=== PATIENT | male | born 1945 | race Caucasian/White ===

== ENCOUNTER 2022-06-20 16:02 | Emergency (ER) | payer OTHER, MEDICAID ==
[~2022-06-20] VITALS: Ht 165.1 cm; Wt 58.0 kg
[~2022-06-20 16:02] MED LIST: AMLO5TAB4 PO; APIX5TAB PO; BICA50TA7 PO; LISI20TA31 PO; NAPR-677 PO
[2022-06-20 16:10] VITALS: BP 124/64
== END 2022-06-20 19:00 | disposition home or self-care (01) ==
LOC: ER 16:02
DX: Z00.00 Encounter for general adult medical examination without abnormal findings (principal); I10 Essential (primary) hypertension; Z93.6 Other artificial openings of urinary tract status
CPT/HCPCS: 99281

== ENCOUNTER 2022-06-23 05:26 | Inpatient (IN) | payer OTHER, MEDICAID ==
[~2022-06-23] VITALS: Ht 165.1 cm; Wt 59.0 kg
[2022-06-23 10:24] LABS: BASOPHILS % 1.5 % (0.0-2.0); EOSINOPHILS % 9.6 % (0.0-5.0); HEMATOCRIT. 32.9 % (42.0-52.0); LYMPHOCYTES % 10.2 % (20.0-50.0); MEAN CORPUSCULAR HEMOGLOBIN 29.5 pg (28.0-32.0); MEAN CORPUSCULAR VOLUME 88.2 fL (80.0-94.0); MEAN PLATELET VOLUME 6.9 fl (7.4-10.4); MONOCYTES % 6.3 % (2.0-8.0); NEUTROPHILS % 72.4 % (40.0-76.0); PLATELET 209 x1000/uL (130-400); RED BLOOD CELL COUNT 3.72 mill/uL (4.7-6.1); RED CELL DISTRIBUTION WIDTH 13.3 % (11.6-14.6)
[2022-06-23 10:30] LABS: CHLORIDE 110 mEq/L (98-107)
[2022-06-23 10:34] LABS: PROTHROMBIN TIME 10.6 sec (9.6-11.0)
[2022-06-23 13:20] LABS: CLARITY URINE CLOUDY (CLEAR); COLOR URINE YELLOW (YELLOW); KETONES URINE NEGATIVE (NEGATIVE); LEUKOCYTE ESTERASE URINE 3+ (NEGATIVE); NITRITE URINE NEGATIVE (NEGATIVE); OCCULT BLOOD URINE 1+ (NEGATIVE); PROTEIN URINE 2+ (NEGATIVE); SPECIFIC GRAVITY URINE 1.011 (1.005-1.030); UROBILINOGEN URINE 0.2 E.U./dL (0.2-1.0)
[2022-06-23] MEDS ORDERED: DIPHENHYDRAMINE 50MG/ML VIAL IV PRN (16:00)
[2022-06-23] MEDS ORDERED: MAGNESIUM/ALUMINUM HYDROXIDE/SIMETHICONE 30ML UDC PO PRN (16:00)
[2022-06-23] MEDS ORDERED: ACETAMINOPHEN 325MG TABLET PO PRN ×2 (16:00)
[2022-06-23] MEDS ORDERED: CLONIDINE 0.1MG TABLET PO PRN (16:00)
[2022-06-23] MEDS ORDERED: ONDANSETRON HCL 4MG/2ML INJ IV PRN (16:00)
[2022-06-23] MEDS: ENOXAPARIN 40MG/0.4ML SYR SUBCUT SCH (16:48)
[2022-06-23] MEDS: DEXT 5%/0.45% NACL 1000ML 1,000 ML IV SCH (16:48)
[2022-06-23 22:00] VITALS: BP 129/70
[2022-06-24] VITALS: BP 127/67
[2022-06-24 08:00] VITALS: BP 133/73
[2022-06-24] MEDS ORDERED: BICALUTAMIDE 50 MG TABLET PO SCH (09:00)
[2022-06-24] MEDS: DEXT 5%/0.45% NACL 1000ML 1,000 ML IV SCH (09:41)
[2022-06-24] MEDS ORDERED: CEFTRIAXONE 1 G PREMIX 50 ML IV SCH (10:00)
[2022-06-24 12:00] VITALS: BP 123/65
[2022-06-24] MEDS: CEFTRIAXONE 1,000 MG in DEXTROSE 5% WATER 50 ML IV SCH (12:41)
[2022-06-24 16:00] VITALS: BP 119/63
[2022-06-24] MEDS: ENOXAPARIN 40MG/0.4ML SYR SUBCUT SCH (17:00)
[2022-06-25] VITALS: BP 136/71
[2022-06-25 08:00] VITALS: BP 128/68
[2022-06-25] MEDS: DEXT 5%/0.45% NACL 1000ML 1,000 ML IV SCH (08:00)
[2022-06-25] MEDS ORDERED: BICALUTAMIDE 50 MG TABLET PO SCH (09:30)
[2022-06-25] MEDS: CEFTRIAXONE 1,000 MG in DEXTROSE 5% WATER 50 ML IV SCH (10:07)
[2022-06-25 12:00] VITALS: BP 116/65
[2022-06-25 14:29] VITALS: BP 116/65
[2022-06-25 16:00] VITALS: BP 126/64
== END 2022-06-25 17:40 | disposition home or self-care (01) | DRG 699 ==
LOC: ER 05:26 → EDBEDREQ 09:28 → EDBEDREQTM 09:28 → EDBEDREQ 12:40 → 6EST 22:35
PROVIDERS: ADMIT Internal Medicine; ATTEND Internal Medicine
DX: T83.012A Breakdown (mechanical) of nephrostomy catheter, initial encounter (principal); N39.0 Urinary tract infection, site not specified; C61 Malignant neoplasm of prostate; N13.9 Obstructive and reflux uropathy, unspecified; I10 Essential (primary) hypertension; Z20.822 Contact with and (suspected) exposure to COVID-19; Z79.899 Other long term (current) drug therapy; Z85.46 Personal history of malignant neoplasm of prostate; Z85.3 Personal history of malignant neoplasm of breast; Y73.2 Prosthetic and other implants, materials and accessory gastroenterology and urology devices associated with adverse incidents; Y92.89 Other specified places as the place of occurrence of the external cause
CPT/HCPCS: 36415; 74176; 80053; 81003; 85025; 87077; 87186; 87426; 93970; 99285; C9803; J0696; J1650; J7060

== ENCOUNTER 2022-07-30 20:25 | Emergency (ER) | payer OTHER, MEDICAID ==
[~2022-07-30] VITALS: Ht 165.1 cm; Wt 60.0 kg
[2022-07-31 04:19] LABS: CLARITY URINE CLOUDY (CLEAR); COLOR URINE YELLOW (YELLOW); KETONES URINE NEGATIVE (NEGATIVE); LEUKOCYTE ESTERASE URINE 3+ (NEGATIVE); NITRITE URINE POSITIVE (NEGATIVE); OCCULT BLOOD URINE 2+ (NEGATIVE); PH URINE 7.5 (4.5-8.0); PROTEIN URINE 1+ (NEGATIVE); SPECIFIC GRAVITY URINE 1.011 (1.005-1.030); UROBILINOGEN URINE 0.2 E.U./dL (0.2-1.0)
[2022-07-31 05:01] VITALS: BP 128/88
[2022-07-31] MEDS ORDERED: CEPH250C2 MT (05:02)
== END 2022-07-31 06:17 | disposition home or self-care (01) ==
LOC: ER 20:25
DX: Z43.6 Encounter for attention to other artificial openings of urinary tract (principal); N39.0 Urinary tract infection, site not specified; I10 Essential (primary) hypertension; N40.0 Benign prostatic hyperplasia without lower urinary tract symptoms; Z85.46 Personal history of malignant neoplasm of prostate
CPT/HCPCS: 81003; 99283

== ENCOUNTER 2022-08-18 07:38 | Inpatient (IN) | payer OTHER, MEDICAID ==
[~2022-08-18] VITALS: Ht 160 cm; Wt 58.1 kg
[~2022-08-18 07:38] MED LIST changes: +CEPH250C2 MT
[2022-08-18 16:47] LABS: HEMATOCRIT. 36.6 % (42.0-52.0); HEMOGLOBIN. 11.9 g/dL (14.0-18.0); MEAN CORPUSCULAR HEMOGLOBIN 28.7 pg (28.0-32.0); MEAN CORPUSCULAR VOLUME 88.1 fL (80.0-94.0); MEAN PLATELET VOLUME 7.8 fl (7.4-10.4); PLATELET 194 x1000/uL (130-400); RED BLOOD CELL COUNT 4.16 mill/uL (4.7-6.1); RED CELL DISTRIBUTION WIDTH 14.1 % (11.6-14.6)
[2022-08-18 16:51] LABS: CHLORIDE 105 mEq/L (98-107)
[2022-08-18] MEDS ORDERED: SODIUM CHLORIDE 0.9% 1,000 ML IV ONE (17:00)
[2022-08-18 17:46] LABS: CLARITY URINE CLOUDY (CLEAR); COLOR URINE YELLOW (YELLOW); KETONES URINE NEGATIVE (NEGATIVE); LEUKOCYTE ESTERASE URINE 3+ (NEGATIVE); NITRITE URINE POSITIVE (NEGATIVE); OCCULT BLOOD URINE 1+ (NEGATIVE); PH URINE 8.5 (4.5-8.0); PROTEIN URINE 2+ (NEGATIVE); SPECIFIC GRAVITY URINE 1.012 (1.005-1.030); UROBILINOGEN URINE 0.2 E.U./dL (0.2-1.0)
[2022-08-18 18:37] LABS: PLATELET ESTIMATE NORMAL
[2022-08-18] MEDS ORDERED: CEFTRIAXONE 1 G PREMIX 50 ML IV ONE (18:45)
[2022-08-19 08:00] VITALS: BP_SYST 121; BP_SYST 136; BP_DIAS 62
[2022-08-19] MEDS: SODIUM CHLORIDE 0.45% 1,000 ML IV SCH (09:15)
[2022-08-19 10:25] VITALS: BP 136/62
[2022-08-19] MEDS ORDERED: ACETAMINOPHEN 325MG TABLET PO PRN (10:30)
[2022-08-19] MEDS ORDERED: DOCUSATE SODIUM 100MG CAPSULE PO PRN (10:30)
[2022-08-19] MEDS ORDERED: IPRATROPIUM/ALBUTEROL 0.5-3(2.5)MG/3ML NEB HHN PRN (10:30)
[2022-08-19] MEDS ORDERED: ONDANSETRON HCL 4MG/2ML INJ IV PRN (10:30)
[2022-08-19] MEDS ORDERED: HYDROCODONE/ACETAMINOPHEN 5/325MG TABLET PO PRN (10:45)
[2022-08-19] MEDS ORDERED: NALOXONE HCL 0.4MG/ML VIAL IV PRN (10:45)
[2022-08-19] MEDS: ENOXAPARIN 40MG/0.4ML SYR SUBCUT SCH (11:00)
[2022-08-19 12:00] VITALS: BP 137/62
[2022-08-19 13:12] LABS: PARTIAL THROMBOPLASTIN TIME 25.4 sec (23.4-31.0); PROTHROMBIN TIME 10.6 sec (9.6-11.0)
[2022-08-19] MEDS ORDERED: LIDOCAINE HCL 1% 10 MG/ML 10ML VIAL ONE (13:16)
[2022-08-19] MEDS ORDERED: IOHEXOL-300 100 ML BOTTLE ONE (13:17)
[2022-08-19] MEDS ORDERED: IOHEXOL-300 50 ML BOTTLE IV ONE (13:18)
[2022-08-19 16:00] VITALS: BP 121/62
[2022-08-19 16:38] LABS: CREATINE KINASE 66 IU/L (39-308); CREATINE KINASE MB FRACTION < 1.0 ng/mL (0.5-3.6)
[2022-08-19 20:00] VITALS: BP 113/59
[2022-08-19] MEDS ORDERED: ALBUTEROL (0.083%) 2.5MG/3ML NEB HHN PRN (20:00)
[2022-08-19] MEDS ORDERED: IPRATROPIUM BROMIDE (0.02%) 0.5MG/2.5ML NEB HHN PRN (20:00)
[2022-08-19] MEDS: CEFTRIAXONE 1,000 MG in DEXTROSE 5% WATER 50 ML IV SCH (20:18)
[2022-08-19 23:16] LABS: CREATINE KINASE 55 IU/L (39-308); CREATINE KINASE MB FRACTION < 1.0 ng/mL (0.5-3.6)
[2022-08-20] VITALS: BP 130/62
[2022-08-20] MEDS: SODIUM CHLORIDE 0.45% 1,000 ML IV SCH ×2 (01:55→18:56)
[2022-08-20 04:00] VITALS: BP 115/63
[2022-08-20 08:00] VITALS: BP 140/63
[2022-08-20] MEDS: ENOXAPARIN 40MG/0.4ML SYR SUBCUT SCH (09:00)
[2022-08-20 12:00] VITALS: BP 157/78
[2022-08-20] MEDS ORDERED: CIPR-263 MT (13:20)
[2022-08-20 16:00] VITALS: BP 125/68
[2022-08-20 20:00] VITALS: BP 123/67
[2022-08-20] MEDS: CEFTRIAXONE 1,000 MG in DEXTROSE 5% WATER 50 ML IV SCH (21:11)
[2022-08-21] VITALS (17 sets, daily range): BP systolic 122–185; BP diastolic 57–93
[2022-08-21 07:21] LABS: BASOPHILS % 2.3 % (0.0-2.0); EOSINOPHILS % 6.3 % (0.0-5.0); HEMATOCRIT. 33.1 % (42.0-52.0); HEMOGLOBIN. 10.9 g/dL (14.0-18.0); LYMPHOCYTES % 17.6 % (20.0-50.0); MEAN CORPUSCULAR VOLUME 87.5 fL (80.0-94.0); MEAN PLATELET VOLUME 7.8 fl (7.4-10.4); MONOCYTES % 6.2 % (2.0-8.0); NEUTROPHILS % 67.6 % (40.0-76.0); PLATELET 148 x1000/uL (130-400); RED BLOOD CELL COUNT 3.78 mill/uL (4.7-6.1); RED CELL DISTRIBUTION WIDTH 13.8 % (11.6-14.6)
[2022-08-21] MEDS ORDERED: LIDOCAINE HCL 1% 10 MG/ML 10ML VIAL ONE (07:22)
[2022-08-21] MEDS ORDERED: FENTANYL CITRATE/PF 50MCG/ML 2ML VIAL IV NR (07:55)
[2022-08-21] MEDS ORDERED: FENTANYL CITRATE/PF 50MCG/ML 2ML VIAL ONE (07:55)
[2022-08-21] MEDS: ENOXAPARIN 40MG/0.4ML SYR SUBCUT SCH (09:36)
[2022-08-21] MEDS: SODIUM CHLORIDE 0.45% 1,000 ML IV SCH (11:55)
[2022-08-21] MEDS ORDERED: AMLO5TAB4 PO (13:25)
== END 2022-08-21 21:36 | disposition home or self-care (01) | DRG 700 ==
LOC: ER 07:38 → 6EST 08-19 00:15 → ER 08-19 06:01
PROVIDERS: ADMIT Internal Medicine; ATTEND Internal Medicine
PROC: 0T25X0Z Change Drainage Device in Kidney, External Approach (ICD-10-PCS; principal; 2022-08-21)
DX: T83.012A Breakdown (mechanical) of nephrostomy catheter, initial encounter (principal); N30.90 Cystitis, unspecified without hematuria; I10 Essential (primary) hypertension; Z20.822 Contact with and (suspected) exposure to COVID-19; Z85.46 Personal history of malignant neoplasm of prostate; Z79.01 Long term (current) use of anticoagulants; Z86.718 Personal history of other venous thrombosis and embolism; Y92.89 Other specified places as the place of occurrence of the external cause
CPT/HCPCS: 36415; 50435; 74176; 80048; 80053; 81003; 82550; 82553; 84484; 85025; 87426; 99152; 99153; 99285; C1760; C1769; C2625; J0696; J1650; J3010; J3490; J7030; J7060; Q9967; G0500

== ENCOUNTER 2023-02-16 14:46 | Inpatient (IN) | payer OTHER, MEDICAID ==
[~2023-02-16] VITALS: Ht 157.5 cm; Wt 59.0 kg
[~2023-02-16 14:46] MED LIST changes: +ACET-2708 MT; -CEPH250C2 MT; +CEPH500C2 MT; +NITR-87 MT; +ONDA4TAB50 MT
[2023-02-16 15:39] VITALS: O2SAT 98
[2023-02-16 22:53] LABS: BASOPHILS % 1.2 % (0.0-2.0); EOSINOPHILS % 3.2 % (0.0-5.0); HEMATOCRIT. 30.3 % (42.0-52.0); HEMOGLOBIN. 9.9 g/dL (14.0-18.0); MEAN CORPUSCULAR HGB CONC 32.6 g/dL (31.0-37.0); MEAN CORPUSCULAR VOLUME 85.9 fL (80.0-94.0); MEAN PLATELET VOLUME 7.2 fl (7.4-10.4); MONOCYTES % 5.4 % (2.0-8.0); NEUTROPHILS % 77.2 % (40.0-76.0); PLATELET 133 x1000/uL (130-400); RED BLOOD CELL COUNT 3.52 mill/uL (4.7-6.1); RED CELL DISTRIBUTION WIDTH 14.2 % (11.6-14.6); WHITE BLOOD COUNT 7.7 x1000/uL (4.5-11.0)
[2023-02-16 23:07] LABS: CHLORIDE 107 mEq/L (98-107); INDEX HEMOLYSI 1 (1-3); INDEX ICTERIC 1 (1-4); INDEX LIPEMIC 1 (1-3); POTASSIUM 4.2 mEq/L (3.5-5.1); SODIUM 137 mEq/L (136-145)
[2023-02-16 23:16] LABS: ALANINE AMINOTRANSFERASE 41 IU/L (13-61); ALBUMIN 3.7 g/dL (3.4-5.0); ASPARTATE AMINOTRANSFERASE 29 IU/L (15-37); BILIRUBIN TOTAL 0.2 mg/dL (0.1-1.0); CALCIUM 8.6 mg/dL (8.5-10.1); CARBON DIOXIDE 22 mEq/L (21-32); CREATININE 1.5 mg/dL (0.6-1.3); GLUCOSE 104 mg/dL (70-105); PROTEIN TOTAL 8.1 g/dL (6.0-8.3); UREA NITROGEN BLOOD 26 mg/dL (7-21)
[2023-02-17 01:10] VITALS: BP 123/66; PULSE 80; RESP 20; TEMP 97.2
[2023-02-17 04:00] VITALS: BP 126/67; PULSE 81; RESP 17; TEMP 98.2
[2023-02-17 08:00] VITALS: BP 129/65; PULSE 71; RESP 18; TEMP 96.7
[2023-02-17] MEDS ORDERED: IPRATROPIUM/ALBUTEROL 0.5-3(2.5)MG/3ML NEB HHN PRN (10:30)
[2023-02-17] MEDS ORDERED: CLONIDINE 0.1MG TABLET PO PRN (10:30)
[2023-02-17] MEDS ORDERED: ACETAMINOPHEN 325MG TABLET PO PRN ×2 (10:30)
[2023-02-17] MEDS: SODIUM CHLORIDE 0.9% 1,000 ML IV SCH (10:30)
[2023-02-17] MEDS ORDERED: ONDANSETRON HCL 4MG/2ML INJ IV PRN (10:30)
[2023-02-17] MEDS ORDERED: DOCUSATE SODIUM 100MG CAPSULE PO PRN (10:30)
[2023-02-17 12:00] VITALS: BP 138/97; PULSE 72; RESP 18; TEMP 96.7
[2023-02-17 16:00] VITALS: BP 109/48; PULSE 78; RESP 17; TEMP 96.1
[2023-02-17 17:16] LABS: BASOPHILS % 1.1 % (0.0-2.0); EOSINOPHILS % 3.1 % (0.0-5.0); HEMATOCRIT. 27.7 % (42.0-52.0); HEMOGLOBIN. 9.2 g/dL (14.0-18.0); LYMPHOCYTES % 11.8 % (20.0-50.0); MEAN CORPUSCULAR HEMOGLOBIN 28.3 pg (28.0-32.0); MEAN CORPUSCULAR HGB CONC 33.1 g/dL (31.0-37.0); MEAN CORPUSCULAR VOLUME 85.4 fL (80.0-94.0); MEAN PLATELET VOLUME 7.8 fl (7.4-10.4); MONOCYTES % 5.9 % (2.0-8.0); NEUTROPHILS % 78.1 % (40.0-76.0); PLATELET 119 x1000/uL (130-400); RED BLOOD CELL COUNT 3.24 mill/uL (4.7-6.1); RED CELL DISTRIBUTION WIDTH 14.2 % (11.6-14.6); WHITE BLOOD COUNT 5.4 x1000/uL (4.5-11.0)
[2023-02-17 17:23] LABS: POTASSIUM 3.6 mEq/L (3.5-5.1)
[2023-02-17 17:27] LABS: CALCIUM 7.7 mg/dL (8.5-10.1); CREATININE 1.5 mg/dL (0.6-1.3)
[2023-02-17 17:56] LABS: FOLIC ACID (FOLATE) SERUM 8.8 ng/mL (>5.38)
[2023-02-17 20:00] VITALS: BP 138/65; PULSE 77; RESP 18; TEMP 96.3
[2023-02-18] VITALS: BP 126/64; PULSE 24; RESP 18; TEMP 97
[2023-02-18 04:00] VITALS: BP 126/64; PULSE 24; RESP 18; TEMP 97
[2023-02-18 08:00] VITALS: BP 133/69; PULSE 78; RESP 18; TEMP 97.6
[2023-02-18 13:22] LABS: PROTHROMBIN TIME 10.9 sec (9.6-11.0)
== END 2023-02-18 17:10 | disposition home or self-care (01) | DRG 699 ==
LOC: ER 14:46 → MICUSO 22:30 → 4WST 02-17 02:02
PROVIDERS: ADMIT Internal Medicine; ATTEND Internal Medicine
DX: T83.012A Breakdown (mechanical) of nephrostomy catheter, initial encounter (principal); N17.9 Acute kidney failure, unspecified; I12.9 Hypertensive chronic kidney disease with stage 1 through stage 4 chronic kidney disease, or unspecified chronic kidney disease; D63.1 Anemia in chronic kidney disease; N18.9 Chronic kidney disease, unspecified; Z85.46 Personal history of malignant neoplasm of prostate; Z79.899 Other long term (current) drug therapy; Y73.2 Prosthetic and other implants, materials and accessory gastroenterology and urology devices associated with adverse incidents; Y92.89 Other specified places as the place of occurrence of the external cause
CPT/HCPCS: 36415; 74176; 80048; 80053; 82607; 82728; 82746; 83540; 83550; 85025; 99285; J7030

== ENCOUNTER 2023-07-05 09:21 | Inpatient (IN) | payer MEDICARE, MEDICAID ==
[~2023-07-05] VITALS: Ht 172.7 cm; Wt 81.7 kg
[~2023-07-05 09:21] MED LIST changes: +ABIR250T2 PO; -ACET-2708 MT; +APIX2.5T PO; -APIX5TAB PO; -BICA50TA7 PO; -CEPH500C2 MT; +DENO120V SUBCUT; +LEUP22.52 IM; +LEVO25TA7 PO; -LISI20TA31 PO; -NAPR-677 PO; -NITR-87 MT; -ONDA4TAB50 MT
[2023-07-05 11:02] LABS: MEAN CORPUSCULAR HEMOGLOBIN 27.4 pg (28.0-32.0); MEAN CORPUSCULAR HGB CONC 31.5 g/dL (31.0-37.0); MEAN CORPUSCULAR VOLUME 86.7 fL (80.0-94.0); MEAN PLATELET VOLUME 6.4 fl (7.4-10.4); PLATELET 150 x1000/uL (130-400); RED BLOOD CELL COUNT 1.69 mill/uL (4.7-6.1); WHITE BLOOD COUNT 8.5 x1000/uL (4.5-11.0)
[2023-07-05 11:03] LABS: DIFFERENTIAL COMMENT 1
[2023-07-05 11:04] LABS: HEMATOCRIT. 14.6 % (42.0-52.0); HEMOGLOBIN. 4.6 g/dL (14.0-18.0)
[2023-07-05 11:22] LABS: ALANINE AMINOTRANSFERASE < 7 IU/L (10-49); ASPARTATE AMINOTRANSFERASE 16 IU/L (<34); BILIRUBIN TOTAL < 0.2 mg/dL (0.1-1.0); CHLORIDE 97 mEq/L (98-107); GLUCOSE 118 mg/dL (70-105); POTASSIUM 5.7 mEq/L (3.5-5.1); PROTEIN TOTAL 7.3 g/dL (6.0-8.3); SODIUM 129 mEq/L (136-145); TROPONIN I HIGH SENSITIVITY 16 ng/L (3.0-53)
[2023-07-05 11:24] LABS: CARBON DIOXIDE < 10 mEq/L (21-32)
[2023-07-05 11:26] LABS: ANISOCYTOSIS 1+; PLATELET ESTIMATE NORMAL
[2023-07-05 11:27] LABS: UREA NITROGEN BLOOD 132 mg/dL (9-23)
[2023-07-05 11:28] LABS: CALCIUM 5.4 mg/dL (8.7-10.4); CREATININE 9.7 mg/dL (0.6-1.3)
[2023-07-05] MEDS ORDERED: ALBUTEROL (0.083%) 2.5MG/3ML NEB HHN ONE (11:30)
[2023-07-05] MEDS ORDERED: CALCIUM CHLORIDE 1GM/10ML SYR IV ONE (11:30)
[2023-07-05] MEDS ORDERED: SODIUM BICARBONATE 8.4% 1 MEQ/ML 50ML SYR IV ONE (11:30)
[2023-07-05 11:33] LABS: INR 1.2; PROTHROMBIN TIME 12.9 sec (9.6-11.0)
[2023-07-05 11:45] VITALS: PULSE 98; RESP 22; O2SAT 3
[2023-07-05] MEDS ORDERED: CEFTRIAXONE 1GM PREMIX 50 ML IV ONE (11:45)
[2023-07-05] MEDS ORDERED: SODIUM BICARBONATE 8.4% 1 MEQ/ML 50ML SYR IV NR (12:15)
[2023-07-06 04:19] LABS: MEAN CORPUSCULAR HEMOGLOBIN 27.9 pg (28.0-32.0); MEAN CORPUSCULAR HGB CONC 32.8 g/dL (31.0-37.0); MEAN PLATELET VOLUME 6.6 fl (7.4-10.4); PLATELET 119 x1000/uL (130-400); RED BLOOD CELL COUNT 2.18 mill/uL (4.7-6.1); RED CELL DISTRIBUTION WIDTH 16.6 % (11.6-14.6); WHITE BLOOD COUNT 9.3 x1000/uL (4.5-11.0)
[2023-07-06 04:32] LABS: ALANINE AMINOTRANSFERASE < 7 IU/L (10-49); ALBUMIN 3.8 g/dL (3.2-4.8); ASPARTATE AMINOTRANSFERASE 13 IU/L (<34); BILIRUBIN TOTAL 0.3 mg/dL (0.1-1.0); CHLORIDE 101 mEq/L (98-107); GLUCOSE 117 mg/dL (70-105); POTASSIUM 5.5 mEq/L (3.5-5.1); PROTEIN TOTAL 6.8 g/dL (6.0-8.3); SODIUM 132 mEq/L (136-145)
[2023-07-06 04:54] LABS: DIFFERENTIAL COMMENT 1
[2023-07-06 05:06] LABS: CALCIUM 5.9 mg/dL (8.7-10.4); CARBON DIOXIDE < 10 mEq/L (21-32); CREATININE 9.7 mg/dL (0.6-1.3); UREA NITROGEN BLOOD 131 mg/dL (9-23)
[2023-07-06 05:07] LABS: HEMATOCRIT. 18.5 % (42.0-52.0); HEMOGLOBIN. 6.1 g/dL (14.0-18.0)
[2023-07-06 07:04] LABS: CLARITY URINE TURBID (CLEAR); COLOR URINE YELLOW (YELLOW); GLUCOSE URINE NEGATIVE (NEGATIVE); KETONES URINE TRACE (NEGATIVE); LEUKOCYTE ESTERASE URINE 3+ (NEGATIVE); NITRITE URINE NEGATIVE (NEGATIVE); OCCULT BLOOD URINE 3+ (NEGATIVE); PROTEIN URINE 3+ (NEGATIVE); SPECIFIC GRAVITY URINE 1.016 (1.005-1.030); UROBILINOGEN URINE 0.2 E.U./dL (0.2-1.0)
[2023-07-06 07:49] LABS: ANISOCYTOSIS 1+; PLATELET ESTIMATE SLIGHTLY DECREASED
[2023-07-06 07:51] LABS: WBC URINE TNTC /hpf (0-2)
[2023-07-06 07:52] LABS: SQUAMOUS EPITHELIAL CELL URINE NONE SEEN /lpf (RARE/1+)
[2023-07-06 07:53] LABS: BACTERIA URINE 4+
[2023-07-06 09:38] LABS: BG BASE EXCESS -15.6 mmol/L (-2.0-2.0); BG CARBOXYHEMOGLOBIN 0.2 % (0.5-1.5); BG DEOXYHEMOGLOBIN 2.3 % (0.0-5.0); BG FRACTION INSPIRED OXYGEN 28; BG HCO3 ACT 9.9 mmol/L (22.0-26.0); BG METHEMOGLOBIN 0.2 % (0.0-1.5); BG OXYGEN SATURATION 97.7 % (92.0-98.5); BG OXYHEMOGLOBIN 97.3 % (94.0-97.0); BG PCO2 22.5 mmHg (35.0-45.0); BG PH 7.261 (7.350-7.450); BG PO2 108.1 mmHg (75.0-100.0); BG SAMPLE SITE RIGHT BRACHIAL; BG TOTAL HEMOGLOBIN 8.6 g/dL (12.0-18.0); BG VENT MODE NASAL CANNULA
[2023-07-06] MEDS ORDERED: DOCUSATE SODIUM 100MG CAPSULE PO PRN (13:45)
[2023-07-06] MEDS ORDERED: ACETAMINOPHEN 325MG TABLET PO PRN (13:45)
[2023-07-06] MEDS ORDERED: CLONIDINE 0.1MG TABLET PO PRN (13:45)
[2023-07-06] MEDS ORDERED: IPRATROPIUM/ALBUTEROL 0.5-3(2.5)MG/3ML NEB HHN PRN (13:45)
[2023-07-06] MEDS ORDERED: PIPERACILLIN/TAZO 3.375G/50ML 50 ML IV NR (14:15)
[2023-07-06] MEDS: SODIUM CHLORIDE 0.9% 1,000 ML IV SCH (14:29)
[2023-07-06 15:03] LABS: HEMATOCRIT. 24.3 % (42.0-52.0); HEMOGLOBIN. 7.7 g/dL (14.0-18.0); MEAN CORPUSCULAR HEMOGLOBIN 28.4 pg (28.0-32.0); MEAN CORPUSCULAR HGB CONC 31.9 g/dL (31.0-37.0); MEAN CORPUSCULAR VOLUME 89.1 fL (80.0-94.0); MEAN PLATELET VOLUME 6.7 fl (7.4-10.4); PLATELET 105 x1000/uL (130-400); RED BLOOD CELL COUNT 2.72 mill/uL (4.7-6.1); RED CELL DISTRIBUTION WIDTH 16.7 % (11.6-14.6); WHITE BLOOD COUNT 7.6 x1000/uL (4.5-11.0)
[2023-07-06 15:05] LABS: AMMONIA < 10 uMol/L (<32)
[2023-07-06 15:06] LABS: ALANINE AMINOTRANSFERASE < 7 IU/L (10-49); ALBUMIN 3.8 g/dL (3.2-4.8); ASPARTATE AMINOTRANSFERASE 16 IU/L (<34); BILIRUBIN TOTAL 0.2 mg/dL (0.1-1.0); CARBON DIOXIDE 13 mEq/L (21-32); CHLORIDE 103 mEq/L (98-107); GLUCOSE 115 mg/dL (70-105); POTASSIUM 5.5 mEq/L (3.5-5.1); PROTEIN TOTAL 6.9 g/dL (6.0-8.3); SODIUM 135 mEq/L (136-145)
[2023-07-06 15:27] LABS: CALCIUM 5.8 mg/dL (8.7-10.4); CREATININE 9.4 mg/dL (0.6-1.3)
[2023-07-06 15:28] LABS: DIFFERENTIAL COMMENT 1
[2023-07-06 15:33] LABS: UREA NITROGEN BLOOD 127 mg/dL (9-23)
[2023-07-06 16:00] VITALS: BP_SYST 110; BP_SYST 98; BP_DIAS 62; BP_DIAS 69; PULSE 94; PULSE 95; RESP 16; RESP 22; TEMP 97.1; TEMP 97.2
[2023-07-06 16:44] LABS: ANISOCYTOSIS 1+; PLATELET ESTIMATE DECREASED
[2023-07-06 18:00] VITALS: BP 110/62; PULSE 97; RESP 22
[2023-07-06] MEDS: SODIUM POLYSTYRENE SULFONATE 15 G/60 ML BOT PO NR (19:45)
[2023-07-06 20:00] VITALS: BP 95/64; PULSE 94; RESP 15; TEMP 98.6
[2023-07-06 21:00] VITALS: BP 94/47; PULSE 94; RESP 14
[2023-07-06 22:00] VITALS: BP 96/52; PULSE 94; RESP 15
[2023-07-06] MEDS: SODIUM BICARBONATE 650 MG TABLET PO SCH ×2 (22:50→22:51)
[2023-07-06 23:00] VITALS: BP 105/51; PULSE 95; RESP 17
[2023-07-06] MEDS ORDERED: PIPERACILLIN/TAZOBACTAM 3.375 G in DEXTROSE 5% WATER 50 ML IV SCH (23:00)
[2023-07-07] VITALS (24 sets, daily range): BP systolic 85–131; BP diastolic 46–107; PULSE 89–112; RESP 13–20; TEMP 97.2–98.7
[2023-07-07] MEDS: PIPERACILLIN/TAZOBACTAM 3.375 G in DEXTROSE 5% WATER 50 ML IV SCH ×3 (00:01→20:14)
[2023-07-07] MEDS: SODIUM POLYSTYRENE SULFONATE 15 G/60 ML BOT PO NR (00:02)
[2023-07-07] MEDS: SODIUM CHLORIDE 0.9% 1,000 ML IV SCH (03:26)
[2023-07-07 05:22] LABS: HEMATOCRIT. 24.5 % (42.0-52.0); HEMOGLOBIN. 8.2 g/dL (14.0-18.0); MEAN CORPUSCULAR HGB CONC 33.4 g/dL (31.0-37.0); MEAN CORPUSCULAR VOLUME 86.7 fL (80.0-94.0); MEAN PLATELET VOLUME 6.7 fl (7.4-10.4); PLATELET 114 x1000/uL (130-400); RED BLOOD CELL COUNT 2.83 mill/uL (4.7-6.1); RED CELL DISTRIBUTION WIDTH 17.3 % (11.6-14.6); WHITE BLOOD COUNT 8.2 x1000/uL (4.5-11.0)
[2023-07-07 05:33] LABS: CHLORIDE 105 mEq/L (98-107); GLUCOSE 108 mg/dL (70-105); POTASSIUM 5.3 mEq/L (3.5-5.1); SODIUM 135 mEq/L (136-145)
[2023-07-07 05:49] LABS: UREA NITROGEN BLOOD 122 mg/dL (9-23)
[2023-07-07 05:52] LABS: CARBON DIOXIDE < 10 mEq/L (21-32)
[2023-07-07 05:53] LABS: CALCIUM 5.7 mg/dL (8.7-10.4)
[2023-07-07 07:02] LABS: DIFFERENTIAL COMMENT 1
[2023-07-07] MEDS ORDERED: CALCIUM GLUCONATE 100MG/ML 10ML VIAL IV ONE (08:30)
[2023-07-07] MEDS ORDERED: SODIUM BICARBONATE 8.4% 1 MEQ/ML 50ML SYR IV SCH (09:00)
[2023-07-07 09:56] LABS: BG CARBOXYHEMOGLOBIN 0.3 % (0.5-1.5); BG DEOXYHEMOGLOBIN 3.7 % (0.0-5.0); BG FRACTION INSPIRED OXYGEN 28; BG HCO3 ACT 9.7 mmol/L (22.0-26.0); BG METHEMOGLOBIN 0.4 % (0.0-1.5); BG OXYGEN SATURATION 96.3 % (92.0-98.5); BG OXYHEMOGLOBIN 95.6 % (94.0-97.0); BG PCO2 23.1 mmHg (35.0-45.0); BG PH 7.243 (7.350-7.450); BG PO2 94.7 mmHg (75.0-100.0); BG SAMPLE SITE RIGHT BRACHIAL; BG TOTAL HEMOGLOBIN 8.6 g/dL (12.0-18.0); BG VENT MODE NASAL CANNULA
[2023-07-07] MEDS ORDERED: CALCIUM GLUCONATE 2,000 MG in SODIUM CHLORIDE 0.9% 100 ML IV NR (10:00)
[2023-07-07] MEDS ORDERED: SODIUM BICARBONATE 150 MEQ in DEXTROSE 5% WATER 1,000 ML IV SCH (10:00)
[2023-07-07] MEDS: SODIUM BICARBONATE 650 MG TABLET PO SCH ×3 (10:14→20:13)
[2023-07-07] MEDS ORDERED: IOHEXOL-300 50 ML BOTTLE IV ONE (10:41)
[2023-07-07] MEDS ORDERED: LIDOCAINE HCL 1% 10 MG/ML 10ML VIAL ONE ×2 (10:41→11:04)
[2023-07-07] MEDS ORDERED: SODIUM BICARBONATE 8.4% 1 MEQ/ML 50ML SYR IV NR (13:45)
[2023-07-07 19:11] LABS: HEPATITIS A AB IGM NEGATIVE (Negative); HEPATITIS B CORE AB IGM NEGATIVE (Negative); HEPATITIS B SURFACE ANTIGEN NEGATIVE (Negative); HEPATITIS C AB NON REACTIVE (Neg) (Negative)
[2023-07-07 19:50] LABS: ANISOCYTOSIS 1+; PLATELET ESTIMATE DECREASED
[2023-07-08] VITALS (16 sets, daily range): BP systolic 78–130; BP diastolic 44–105; PULSE 87–107; RESP 10–19; TEMP 97.1–98.1
[2023-07-08] MEDS: ONDANSETRON HCL 4MG/2ML INJ IV PRN ×2 (07:03→14:03)
[2023-07-08] MEDS: SODIUM BICARBONATE 650 MG TABLET PO SCH ×4 (09:00→21:56)
[2023-07-08] MEDS: PIPERACILLIN/TAZOBACTAM 3.375 G in DEXTROSE 5% WATER 50 ML IV SCH ×2 (09:48→21:56)
[2023-07-08 11:20] LABS: HEMATOCRIT. 22.7 % (42.0-52.0); HEMOGLOBIN. 7.4 g/dL (14.0-18.0); MEAN CORPUSCULAR HEMOGLOBIN 28.5 pg (28.0-32.0); MEAN CORPUSCULAR HGB CONC 32.5 g/dL (31.0-37.0); MEAN CORPUSCULAR VOLUME 87.8 fL (80.0-94.0); MEAN PLATELET VOLUME 7.2 fl (7.4-10.4); PLATELET 87 x1000/uL (130-400); RED BLOOD CELL COUNT 2.58 mill/uL (4.7-6.1); RED CELL DISTRIBUTION WIDTH 16.6 % (11.6-14.6); WHITE BLOOD COUNT 9.5 x1000/uL (4.5-11.0)
[2023-07-08 11:24] LABS: DIFFERENTIAL COMMENT 1
[2023-07-08] MEDS ORDERED: SODIUM CHLORIDE 0.9% 250 ML IV ONE ×2 (11:45→14:15)
[2023-07-08 11:57] LABS: ALANINE AMINOTRANSFERASE < 7 IU/L (10-49); ALBUMIN 3.5 g/dL (3.2-4.8); ASPARTATE AMINOTRANSFERASE 15 IU/L (<34); BILIRUBIN TOTAL 0.3 mg/dL (0.1-1.0); CALCIUM 6.6 mg/dL (8.7-10.4); CARBON DIOXIDE 19 mEq/L (21-32); CHLORIDE 98 mEq/L (98-107); GLUCOSE 131 mg/dL (70-105); PROTEIN TOTAL 6.5 g/dL (6.0-8.3); SODIUM 137 mEq/L (136-145); UREA NITROGEN BLOOD 79 mg/dL (9-23)
[2023-07-08] MEDS ORDERED: PANTOPRAZOLE SODIUM 40 MG/VIAL IV SCH (12:15)
[2023-07-08] MEDS: SODIUM CHLORIDE 0.45% 1,000 ML IV SCH (14:00)
[2023-07-08] MEDS: PANTOPRAZOLE SODIUM 40 MG/VIAL IV SCH ×2 (14:03→21:56)
[2023-07-08] MEDS ORDERED: SODIUM CHLORIDE 0.9% 500 ML IV ONE (14:15)
[2023-07-08 14:25] LABS: NUCLEATED RED BLOOD CELLS 1 /100 WBC
[2023-07-08 14:27] LABS: ANISOCYTOSIS 1+; PLATELET ESTIMATE DECREASED
[2023-07-08 15:17] LABS: INR 1.3; PROTHROMBIN TIME 13.4 sec (9.6-11.0)
[2023-07-08 15:44] LABS: AMMONIA < 10 uMol/L (<32)
[2023-07-09] VITALS (20 sets, daily range): BP systolic 73–122; BP diastolic 45–83; PULSE 81–103; RESP 8–16; TEMP 97.1–97.8
[2023-07-09] MEDS: SODIUM CHLORIDE 0.45% 1,000 ML IV SCH ×2 (02:39→15:58)
[2023-07-09 07:41] LABS: HEMATOCRIT. 23.9 % (42.0-52.0); HEMOGLOBIN. 7.8 g/dL (14.0-18.0); MEAN CORPUSCULAR HEMOGLOBIN 29.4 pg (28.0-32.0); MEAN CORPUSCULAR HGB CONC 32.7 g/dL (31.0-37.0); MEAN CORPUSCULAR VOLUME 89.9 fL (80.0-94.0); MEAN PLATELET VOLUME 7.2 fl (7.4-10.4); PLATELET 72 x1000/uL (130-400); RED BLOOD CELL COUNT 2.66 mill/uL (4.7-6.1); RED CELL DISTRIBUTION WIDTH 16.2 % (11.6-14.6); WHITE BLOOD COUNT 9.7 x1000/uL (4.5-11.0)
[2023-07-09 07:58] LABS: POTASSIUM 3.9 mEq/L (3.5-5.1)
[2023-07-09 08:07] LABS: DIFFERENTIAL COMMENT 1
[2023-07-09] MEDS: PANTOPRAZOLE SODIUM 40 MG/VIAL IV SCH ×2 (08:50→20:46)
[2023-07-09] MEDS: SODIUM BICARBONATE 650 MG TABLET PO SCH ×4 (08:51→21:03)
[2023-07-09 09:42] LABS: CALCIUM 5.9 mg/dL (8.7-10.4); CREATININE 6.9 mg/dL (0.6-1.3)
[2023-07-09] MEDS ORDERED: MEROPENEM 1,000 MG in SODIUM CHLORIDE 0.9% 100 ML IV SCH (10:00)
[2023-07-09] MEDS: ONDANSETRON HCL 4MG/2ML INJ IV PRN ×2 (11:33→16:06)
[2023-07-09] MEDS: MEROPENEM 500MG in NORMAL SALINE 50ML IV SCH (11:33)
[2023-07-09 12:38] LABS: HEMATOCRIT 25.4 % (42.0-52.0); HEMOGLOBIN 8.6 g/dL (14.0-18.0)
[2023-07-09 21:46] LABS: HEMATOCRIT 25.8 % (42.0-52.0); HEMOGLOBIN 8.6 g/dL (14.0-18.0)
[2023-07-10] VITALS (12 sets, daily range): BP systolic 87–101; BP diastolic 46–56; PULSE 89–97; RESP 11–20; TEMP 97.2–98.8
[2023-07-10] MEDS: ONDANSETRON HCL 4MG/2ML INJ IV PRN (02:17)
[2023-07-10] MEDS: SODIUM CHLORIDE 0.45% 1,000 ML IV SCH ×2 (04:15→18:22)
[2023-07-10 07:38] LABS: HEMATOCRIT. 24.6 % (42.0-52.0); HEMOGLOBIN. 8.4 g/dL (14.0-18.0); MEAN CORPUSCULAR HEMOGLOBIN 29.6 pg (28.0-32.0); MEAN CORPUSCULAR HGB CONC 33.9 g/dL (31.0-37.0); MEAN CORPUSCULAR VOLUME 87.1 fL (80.0-94.0); MEAN PLATELET VOLUME 6.9 fl (7.4-10.4); PLATELET 59 x1000/uL (130-400); RED BLOOD CELL COUNT 2.83 mill/uL (4.7-6.1); RED CELL DISTRIBUTION WIDTH 16.2 % (11.6-14.6)
[2023-07-10 07:54] LABS: CALCIUM 6.6 mg/dL (8.7-10.4); POTASSIUM 3.5 mEq/L (3.5-5.1)
[2023-07-10 07:56] LABS: INR 1.2; PROTHROMBIN TIME 12.9 sec (9.6-11.0)
[2023-07-10 07:59] LABS: CREATININE 4.6 mg/dL (0.6-1.3)
[2023-07-10 08:16] LABS: DIFFERENTIAL COMMENT 1
[2023-07-10] MEDS: SODIUM BICARBONATE 650 MG TABLET PO SCH ×4 (09:00→22:02)
[2023-07-10] MEDS: PANTOPRAZOLE SODIUM 40 MG/VIAL IV SCH ×2 (09:00→22:02)
[2023-07-10] MEDS: MEROPENEM 500MG in NORMAL SALINE 50ML IV SCH (10:51)
[2023-07-10 17:28] LABS: ANISOCYTOSIS 1+; NUCLEATED RED BLOOD CELLS 1 /100 WBC; PLATELET ESTIMATE DECREASED
[2023-07-10] MEDS ORDERED: ETOMIDATE 2MG/ML 10ML VIAL IV ONE (20:23)
[2023-07-10] MEDS ORDERED: ONDANSETRON HCL 4MG/2ML INJ ONE (20:24)
[2023-07-10] MEDS ORDERED: DEXAMETHASONE 4MG/ML 1ML VIAL ONE (20:24)
[2023-07-11] VITALS (15 sets, daily range): BP systolic 91–107; BP diastolic 46–61; PULSE 92–101; RESP 15–22; TEMP 97.2–98.2
[2023-07-11 04:29] LABS: ANISOCYTOSIS 1+; PLATELET ESTIMATE DECREASED
[2023-07-11] MEDS: SODIUM CHLORIDE 0.45% 1,000 ML IV SCH ×2 (06:44→23:00)
[2023-07-11] MEDS: SODIUM BICARBONATE 650 MG TABLET PO SCH ×4 (09:00→22:20)
[2023-07-11] MEDS: PANTOPRAZOLE SODIUM 40 MG/VIAL IV SCH ×2 (09:00→22:19)
[2023-07-11 09:42] LABS: ALPHA FETOPROTEIN TUMOR MARKER 3.5 ng/mL (0.0-8.4)
[2023-07-11] MEDS: MEROPENEM 500MG in NORMAL SALINE 50ML IV SCH (10:13)
[2023-07-11 11:58] LABS: HEMOGLOBIN 8.8 g/dL (14.0-18.0); MEAN CORPUSCULAR HEMOGLOBIN 28.8 pg (28.0-32.0); MEAN CORPUSCULAR HGB CONC 32.8 g/dL (31.0-37.0); MEAN CORPUSCULAR VOLUME 87.9 fL (80.0-94.0); PLATELET 52 x1000/uL (130-400); RED BLOOD CELL COUNT 3.07 mill/uL (4.7-6.1); RED CELL DISTRIBUTION WIDTH 16.7 % (11.6-14.6); WHITE BLOOD COUNT 9.2 x1000/uL (4.5-11.0)
[2023-07-11 12:33] LABS: CALCIUM 6.2 mg/dL (8.7-10.4); POTASSIUM 3.4 mEq/L (3.5-5.1)
[2023-07-11 13:21] LABS: CREATININE 5.1 mg/dL (0.6-1.3)
[2023-07-11 14:44] LABS: CREATININE 4.9 mg/dL (0.6-1.3); POTASSIUM 3.4 mEq/L (3.5-5.1)
[2023-07-11 14:51] LABS: CALCIUM 5.7 mg/dL (8.7-10.4)
[2023-07-11 19:50] LABS: FERRITIN 553 ng/mL (22-322); FOLIC ACID (FOLATE) SERUM 2.68 ng/mL (>5.38); VITAMIN B12 SERUM 825 pg/mL (211-911)
[2023-07-11 19:56] LABS: IRON 99 ug/dL (65-175); TOTAL IRON BINDING CAPACITY 138 ug/dl (250-425)
[2023-07-12] VITALS (20 sets, daily range): BP systolic 97–122; BP diastolic 50–67; PULSE 98–113; RESP 17–26; TEMP 97.7–98.6
[2023-07-12] MEDS: SODIUM CHLORIDE 0.45% 1,000 ML IV SCH ×2 (02:00→10:18)
[2023-07-12 08:38] LABS: POTASSIUM 3.6 mEq/L (3.5-5.1)
[2023-07-12] MEDS: PANTOPRAZOLE SODIUM 40 MG/VIAL IV SCH ×2 (09:00→22:01)
[2023-07-12 09:48] LABS: CREATININE 5.2 mg/dL (0.6-1.3)
[2023-07-12 09:51] LABS: CALCIUM 5.9 mg/dL (8.7-10.4)
[2023-07-12 09:55] LABS: HEMATOCRIT. 26.8 % (42.0-52.0); HEMOGLOBIN. 9.2 g/dL (14.0-18.0); MEAN CORPUSCULAR HEMOGLOBIN 30.2 pg (28.0-32.0); MEAN CORPUSCULAR HGB CONC 34.4 g/dL (31.0-37.0); MEAN CORPUSCULAR VOLUME 87.9 fL (80.0-94.0); MEAN PLATELET VOLUME 7.5 fl (7.4-10.4); RED BLOOD CELL COUNT 3.05 mill/uL (4.7-6.1); RED CELL DISTRIBUTION WIDTH 16.7 % (11.6-14.6); WHITE BLOOD COUNT 8.3 x1000/uL (4.5-11.0)
[2023-07-12] MEDS: SODIUM BICARBONATE 650 MG TABLET PO SCH ×4 (10:17→22:05)
[2023-07-12] MEDS: MEROPENEM 500MG in NORMAL SALINE 50ML IV SCH (10:32)
[2023-07-12 11:16] LABS: DIFFERENTIAL COMMENT 1
[2023-07-12 11:17] LABS: PLATELET 48 x1000/uL (130-400)
[2023-07-12] MEDS ORDERED: CALCIUM GLUCONATE 1GM PREMIX 50 ML IV NR (11:30)
[2023-07-12 17:56] LABS: HEPATITIS A AB IGM NEGATIVE (Negative); HEPATITIS B CORE AB IGM NEGATIVE (Negative); HEPATITIS B SURFACE ANTIGEN NEGATIVE (Negative); HEPATITIS C AB NON REACTIVE (Neg) (Negative)
[2023-07-13] VITALS (23 sets, daily range): BP systolic 86–135; BP diastolic 54–70; PULSE 107–119; RESP 16–22; TEMP 97.5–98.6
[2023-07-13] MEDS: ACETAMINOPHEN 325MG TABLET PO PRN (01:00)
[2023-07-13] MEDS: ONDANSETRON HCL 4MG/2ML INJ IV PRN (02:16)
[2023-07-13 05:35] LABS: HEMATOCRIT. 27.9 % (42.0-52.0); HEMOGLOBIN. 9.2 g/dL (14.0-18.0); MEAN CORPUSCULAR HEMOGLOBIN 29.3 pg (28.0-32.0); MEAN CORPUSCULAR HGB CONC 32.9 g/dL (31.0-37.0); MEAN CORPUSCULAR VOLUME 89.2 fL (80.0-94.0); MEAN PLATELET VOLUME 7.1 fl (7.4-10.4); RED BLOOD CELL COUNT 3.13 mill/uL (4.7-6.1); RED CELL DISTRIBUTION WIDTH 16.8 % (11.6-14.6); WHITE BLOOD COUNT 8.5 x1000/uL (4.5-11.0)
[2023-07-13 05:43] LABS: CALCIUM 6.1 mg/dL (8.7-10.4); POTASSIUM 3.7 mEq/L (3.5-5.1)
[2023-07-13 05:49] LABS: PLATELET 41 x1000/uL (130-400)
[2023-07-13 05:50] LABS: DIFFERENTIAL COMMENT 1
[2023-07-13 06:32] LABS: CREATININE 5.4 mg/dL (0.6-1.3)
[2023-07-13] MEDS: MEROPENEM 500MG in NORMAL SALINE 50ML IV SCH (11:06)
[2023-07-13] MEDS: PANTOPRAZOLE SODIUM 40 MG/VIAL IV SCH ×2 (11:06→22:11)
[2023-07-13] MEDS: SODIUM BICARBONATE 650 MG TABLET PO SCH ×4 (11:06→22:11)
[2023-07-13] MEDS: SODIUM CHLORIDE 0.45% 1,000 ML IV SCH (13:08)
[2023-07-13] MEDS: DILTIAZEM HCL 30MG TABLET PO SCH ×2 (13:09→22:11)
[2023-07-13 13:41] LABS: ANISOCYTOSIS 1+; PLATELET ESTIMATE MARKEDLY DECREASED
[2023-07-13 14:30] LABS: ANISOCYTOSIS 1+; PLATELET ESTIMATE MARKEDLY DECREASED
[2023-07-14] VITALS (11 sets, daily range): BP systolic 98–120; BP diastolic 60–73; PULSE 102–109; RESP 15–23; TEMP 97.1–98.5
[2023-07-14] MEDS: ACETAMINOPHEN 325MG TABLET PO PRN (05:32)
[2023-07-14] MEDS: DILTIAZEM HCL 30MG TABLET PO SCH ×3 (05:32→22:00)
[2023-07-14] MEDS: SODIUM CHLORIDE 0.45% 1,000 ML IV SCH ×2 (05:32→13:59)
[2023-07-14 05:38] LABS: CALCIUM 6.3 mg/dL (8.7-10.4); CREATININE 4.4 mg/dL (0.6-1.3); POTASSIUM 3.7 mEq/L (3.5-5.1)
[2023-07-14 06:55] LABS: HEMATOCRIT. 27.4 % (42.0-52.0); HEMOGLOBIN. 8.8 g/dL (14.0-18.0); MEAN CORPUSCULAR HEMOGLOBIN 29.3 pg (28.0-32.0); MEAN CORPUSCULAR HGB CONC 32.3 g/dL (31.0-37.0); MEAN CORPUSCULAR VOLUME 90.9 fL (80.0-94.0); MEAN PLATELET VOLUME 7.5 fl (7.4-10.4); RED BLOOD CELL COUNT 3.01 mill/uL (4.7-6.1); RED CELL DISTRIBUTION WIDTH 16.6 % (11.6-14.6); WHITE BLOOD COUNT 10.1 x1000/uL (4.5-11.0)
[2023-07-14 07:02] LABS: DIFFERENTIAL COMMENT 1
[2023-07-14 09:08] LABS: PLATELET 41 x1000/uL (130-400)
[2023-07-14] MEDS: SODIUM BICARBONATE 650 MG TABLET PO SCH ×4 (09:14→22:41)
[2023-07-14] MEDS: PANTOPRAZOLE SODIUM 40 MG/VIAL IV SCH ×2 (09:14→22:41)
[2023-07-14 16:43] LABS: ANISOCYTOSIS 1+; PLATELET ESTIMATE MARKEDLY DECREASED
[2023-07-14] MEDS: FOLIC ACID 1MG TABLET PO SCH (19:43)
[2023-07-14] MEDS: SUCRALFATE 1 G/10 ML UDC PO SCH (22:47)
[2023-07-15] VITALS (17 sets, daily range): BP systolic 92–118; BP diastolic 53–95; PULSE 99–116; RESP 12–22; TEMP 97.4–98.6
[2023-07-15] MEDS: DILTIAZEM HCL 30MG TABLET PO SCH ×3 (06:00→21:54)
[2023-07-15] MEDS: SODIUM CHLORIDE 0.45% 1,000 ML IV SCH ×2 (06:41→16:46)
[2023-07-15 06:56] LABS: CALCIUM 6.2 mg/dL (8.7-10.4); CREATININE 4.8 mg/dL (0.6-1.3); POTASSIUM 3.4 mEq/L (3.5-5.1)
[2023-07-15 07:02] LABS: INR 1.2; PARTIAL THROMBOPLASTIN TIME 26.7 sec (23.4-31.0); PROTHROMBIN TIME 12.4 sec (9.6-11.0)
[2023-07-15] MEDS: SUCRALFATE 1 G/10 ML UDC PO SCH ×4 (08:10→21:59)
[2023-07-15 09:14] LABS: HEMATOCRIT. 25.3 % (42.0-52.0); HEMOGLOBIN. 8.2 g/dL (14.0-18.0); MEAN CORPUSCULAR HEMOGLOBIN 29.1 pg (28.0-32.0); MEAN CORPUSCULAR HGB CONC 32.4 g/dL (31.0-37.0); MEAN CORPUSCULAR VOLUME 89.7 fL (80.0-94.0); MEAN PLATELET VOLUME 7.3 fl (7.4-10.4); RED BLOOD CELL COUNT 2.82 mill/uL (4.7-6.1); RED CELL DISTRIBUTION WIDTH 16.8 % (11.6-14.6); WHITE BLOOD COUNT 8.3 x1000/uL (4.5-11.0)
[2023-07-15] MEDS ORDERED: POTASSIUM CHLORIDE 20MEQ/PACKET PO NR (09:15)
[2023-07-15] MEDS: FOLIC ACID 1MG TABLET PO SCH (09:21)
[2023-07-15] MEDS: SODIUM BICARBONATE 650 MG TABLET PO SCH ×4 (09:21→21:54)
[2023-07-15] MEDS: PANTOPRAZOLE SODIUM 40 MG/VIAL IV SCH ×2 (09:21→21:53)
[2023-07-15 10:52] LABS: DIFFERENTIAL COMMENT 1
[2023-07-15 10:58] LABS: PLATELET 41 x1000/uL (130-400)
[2023-07-15 15:39] LABS: NUCLEATED RED BLOOD CELLS 1 /100 WBC
[2023-07-15 15:40] LABS: PLATELET ESTIMATE MARKEDLY DECREASED
[2023-07-16] VITALS (11 sets, daily range): BP systolic 94–125; BP diastolic 52–91; PULSE 102–111; RESP 18–25; TEMP 97.6–98.6
[2023-07-16] MEDS: DILTIAZEM HCL 30MG TABLET PO SCH ×2 (06:23→14:00)
[2023-07-16 07:58] LABS: CALCIUM 6.6 mg/dL (8.7-10.4); CREATININE 4.2 mg/dL (0.6-1.3)
[2023-07-16 08:08] LABS: HEMATOCRIT. 24.2 % (42.0-52.0); HEMOGLOBIN. 7.7 g/dL (14.0-18.0); MEAN CORPUSCULAR HEMOGLOBIN 28.5 pg (28.0-32.0); MEAN CORPUSCULAR HGB CONC 31.9 g/dL (31.0-37.0); MEAN CORPUSCULAR VOLUME 89.6 fL (80.0-94.0); MEAN PLATELET VOLUME 7.8 fl (7.4-10.4); RED CELL DISTRIBUTION WIDTH 16.3 % (11.6-14.6); WHITE BLOOD COUNT 8.2 x1000/uL (4.5-11.0)
[2023-07-16 08:13] LABS: DIFFERENTIAL COMMENT 1
[2023-07-16 08:15] LABS: PLATELET 38 x1000/uL (130-400)
[2023-07-16] MEDS: FOLIC ACID 1MG TABLET PO SCH (08:37)
[2023-07-16] MEDS: SODIUM BICARBONATE 650 MG TABLET PO SCH ×3 (08:37→18:02)
[2023-07-16] MEDS: SODIUM CHLORIDE 0.45% 1,000 ML IV SCH (08:37)
[2023-07-16] MEDS: PANTOPRAZOLE SODIUM 40 MG/VIAL IV SCH (08:37)
[2023-07-16] MEDS: SUCRALFATE 1G TABLET PO SCH ×3 (11:07→18:02)
[2023-07-16 17:17] LABS: HEPATITIS A AB IGM NEGATIVE (Negative); HEPATITIS B CORE AB IGM NEGATIVE (Negative); HEPATITIS B SURFACE ANTIGEN NEGATIVE (Negative); HEPATITIS C AB NON REACTIVE (Neg) (Negative)
[2023-07-16 17:20] LABS: PLATELET ESTIMATE MARKEDLY DECREASED
== END 2023-07-16 21:55 | disposition hospice, home (50) | DRG 542 ==
LOC: ER 09:27 → 5EST 13:57 → EDBEDREQ 14:09 → EDBEDREQSVC 14:13 → 5EST 07-13 15:58
PROVIDERS: ADMIT Internal Medicine; ATTEND Internal Medicine
PROC: 30233N1 Transfusion of Nonautologous Red Blood Cells into Peripheral Vein, Percutaneous Approach (ICD-10-PCS; principal; 2023-07-05)
PROC: 0T25X0Z Change Drainage Device in Kidney, External Approach (ICD-10-PCS; 2023-07-07)
PROC: 02HV33Z Insertion of Infusion Device into Superior Vena Cava, Percutaneous Approach (ICD-10-PCS; 2023-07-07)
PROC: B548ZZA Ultrasonography of Superior Vena Cava, Guidance (ICD-10-PCS; 2023-07-07)
PROC: B5181ZA Fluoroscopy of Superior Vena Cava using Low Osmolar Contrast, Guidance (ICD-10-PCS; 2023-07-07)
PROC: 5A1D70Z Performance of Urinary Filtration, Intermittent, Less than 6 Hours Per Day (ICD-10-PCS; 2023-07-07)
PROC: 5A1D70Z Performance of Urinary Filtration, Intermittent, Less than 6 Hours Per Day (ICD-10-PCS; 2023-07-09)
PROC: 0DB78ZX Excision of Stomach, Pylorus, Via Natural or Artificial Opening Endoscopic, Diagnostic (ICD-10-PCS; 2023-07-10)
PROC: 5A0935A Assistance with Respiratory Ventilation, Less than 24 Consecutive Hours, High Flow/Velocity Cannula (ICD-10-PCS; 2023-07-12)
PROC: 0T25X0Z Change Drainage Device in Kidney, External Approach (ICD-10-PCS; 2023-07-12)
PROC: 5A1D70Z Performance of Urinary Filtration, Intermittent, Less than 6 Hours Per Day (ICD-10-PCS; 2023-07-13)
PROC: 5A1D70Z Performance of Urinary Filtration, Intermittent, Less than 6 Hours Per Day (ICD-10-PCS; 2023-07-15)
DX: M84.422A Pathological fracture, left humerus, initial encounter for fracture (principal); K22.11 Ulcer of esophagus with bleeding; C79.51 Secondary malignant neoplasm of bone; E87.1 Hypo-osmolality and hyponatremia; E87.20 Acidosis, unspecified; N17.9 Acute kidney failure, unspecified; J90 Pleural effusion, not elsewhere classified; J98.19 Other pulmonary collapse; J44.9 Chronic obstructive pulmonary disease, unspecified; E83.51 Hypocalcemia; E87.5 Hyperkalemia; Z66 Do not resuscitate; E87.8 Other disorders of electrolyte and fluid balance, not elsewhere classified; N18.9 Chronic kidney disease, unspecified; D64.9 Anemia, unspecified; I12.9 Hypertensive chronic kidney disease with stage 1 through stage 4 chronic kidney disease, or unspecified chronic kidney disease; D69.6 Thrombocytopenia, unspecified; N41.9 Inflammatory disease of prostate, unspecified; N13.9 Obstructive and reflux uropathy, unspecified; N30.90 Cystitis, unspecified without hematuria; K29.50 Unspecified chronic gastritis without bleeding; C61 Malignant neoplasm of prostate; Z51.5 Encounter for palliative care; Z79.01 Long term (current) use of anticoagulants; Z79.899 Other long term (current) drug therapy; W06.XXXA Fall from bed, initial encounter; Y93.89 Activity, other specified; Y92.008 Other place in unspecified non-institutional (private) residence as the place of occurrence of the external cause; Y99.8 Other external cause status
CPT/HCPCS: 36415; 36556; 36600; 50435; 71045; 73060; 76700; 76770; 76937; 77001; 80048; 80053; 81003; 82105; 82140; 82270; 82330; 82375; 82378; 82607; 82728; 82746; 82805; 82962; 83540; 83550; 83605; 83880; 84145; 84484; 85014; 85018; 85025; 85027; 85362; 86301; 86705; 86709; 86850; 86900; 86920; 87077; 87186; 87340; 87426; 88305; 88312; 88313; 90935; 93005; 94644; 99291; A6261; C1725; C1729; C1752; C1760; C1769; C1893; C9113; J0610; J0696; J1100; J1642; J2185; J2405; J2543; J3490; J7050; J7060; J7070; P9016; Q9967